=== PATIENT | female | born 2000 | race Caucasian/White ===

== ENCOUNTER 2020-01-18 12:11 | Emergency (ER) | payer OTHER ==
[2020-01-18 13:15] VITALS: BP 124/89
--- NOTE | 2020-01-18 13:27 | UC ---
Hand/Wrist HPI - HPI Summary HPI Summary: patient was walking a dog, chain wrapped around her finger and pulled it. bruising and swelling noted - History Of Current Complaint Chief Complaint: UCUpperExtremity Stated Complaint: L RING FINGER INJ Time Seen by Provider: 01/18/20 13:12 Hx Obtained From: Patient Hx Last Menstrual Period: 01/14/20 ?: No Onset/Duration: Sudden Onset, Lasting Days Severity Initially: Severe Severity Currently: Severe Pain Intensity: 8 Character Of Pain: Aching, Stiffness Aggravating Factor(s): Movement Alleviating Factor(s): Rest Associated Signs And Symptoms: Positive: Swelling, Bruising - Allergies/Home Medications Allergies/Adverse Reactions: Allergies Allergy/AdvReac Type Severity Reaction Status Date / Time No Known Allergies Allergy Verified 01/18/20 13:10 Home Medications: Home Medications Norethindrone-Ethinyl Estrad [Balziva] 1 tab PO DAILY 01/18/20 [History Confirmed 01/18/20] PMH/Surg Hx/FS Hx/Imm Hx Previously Healthy: Yes - Surgical History Surgical History: None - Family History Known Family History: Positive: Hypertension - Social History Alcohol Use: Occasionally Substance Use Type: None Smoking Status (MU): Never Smoked Tobacco Review of Systems All Other Systems Reviewed And Are Negative: Yes Skin: Positive: Bruising Musculoskeletal: Positive: Arthralgia, Decreased ROM, Edema, Myalgia Is Patient Immunocompromised?: No Physical Exam Triage Information Reviewed: Yes Appearance: Well-Appearing, Well-Nourished, Pain Distress Vital Signs: Initial Vital Signs Temp 97.4 F 01/18/20 13:11 Pulse 68 01/18/20 13:11 Resp 17 01/18/20 13:11 BP 124/89 01/18/20 13:11 Pulse Ox 100 01/18/20 13:11 Vital Signs Reviewed: Yes Eye Exam: Normal ENT Exam: Normal Dental Exam: Normal Neck exam: Normal Respiratory Exam: Normal Respiratory: Positive: Chest non-tender, Lungs clear, Normal breath sounds Cardiovascular Exam: Normal Cardiovascular: Positive: RRR, No Murmur, Pulses Normal Abdominal Exam: Normal Bowel Sounds: Positive: Present Musculoskeletal Exam: Normal Neurological Exam: Normal Psychological Exam: Normal Skin: Positive: Other - bruising and swelling of left rign fimger Hand/Wrist Course/Dx - Course Course Of Treatment: hx obtained, exam performed, meds reviewed, xray obtained. and is negative - Differential Dx/Diagnosis Differential Diagnosis/HQI/PQRI: Contusion, Dislocation, Fracture, Sprain, Strain Provider Diagnosis: Sprain of left ring finger Discharge ED - Sign-Out/Discharge Documenting (check all that apply): Patient Departure All imaging exams completed and their final reports reviewed: No Studies - Discharge Plan Condition: Stable Disposition: HOME Patient Education Materials: Finger Sprain (ED) Referrals: No Primary Care Phys,NOPCP [Primary Care Provider] - Additional Instructions: 1. wear the splint for support 2. soak finger in warm water daily 3. Ibuprofen as needed. - Billing Disposition and Condition Condition: STABLE Disposition: Home
== END 2020-01-18 14:01 | disposition home or self-care (01) ==
LOC: UCCORT 12:11
DX: S63.615A Unspecified sprain of left ring finger, initial encounter (principal); S60.042A Contusion of left ring finger without damage to nail, initial encounter; W23.0XXA Caught, crushed, jammed, or pinched between moving objects, initial encounter; Y93.K1 Activity, walking an animal; Y92.9 Unspecified place or not applicable
CPT/HCPCS: 73140; 99201; G0463